=== PATIENT | male | born 1995 | race Caucasian/White ===

== ENCOUNTER 2019-09-14 15:27 | Emergency (ER) | payer OTHER ==
[~2019-09-14] VITALS: Ht 172.7 cm; Wt 74.8 kg
[2019-09-15] MEDS ORDERED: KETO10TA2 PO (02:03)
== END 2019-09-15 03:23 ==
LOC: ER 15:27
DX: S62.391A Other fracture of second metacarpal bone, left hand, initial encounter for closed fracture (principal); S00.83XA Contusion of other part of head, initial encounter; S90.02XA Contusion of left ankle, initial encounter; S80.01XA Contusion of right knee, initial encounter; V29.88XA Motorcycle rider (driver) (passenger) injured in other specified transport accidents, initial encounter; Y93.89 Activity, other specified; Y92.488 Other paved roadways as the place of occurrence of the external cause; Y99.8 Other external cause status
CPT/HCPCS: 70551

== ENCOUNTER 2020-09-01 06:00 | Day surgery (SDC) | payer OTHER ==
[~2020-09-01 06:00] MED LIST: KETO10TA2 PO
[2020-09-01] MEDS ORDERED: PERCOCET 5-3251 EACH PO (15:33)
[2020-09-01] MEDS ORDERED: NEURONTIN600 M1 PO (15:34)
[2020-09-01] MEDS ORDERED: SURFAK240 M1 PO (15:34)
[2020-09-01] MEDS ORDERED: POLY119PG PO (15:34)
== END 2020-09-01 18:00 | disposition home or self-care (01) ==
LOC: CIR.AMB 06:00
PROVIDERS: ATTEND Surgery
DX: K43.6 Other and unspecified ventral hernia with obstruction, without gangrene (principal); K42.0 Umbilical hernia with obstruction, without gangrene; Z20.822 Contact with and (suspected) exposure to COVID-19